=== PATIENT | male | born 1995 | race Caucasian/White ===

== ENCOUNTER 2023-10-21 11:04 | Emergency (ER) | payer MEDICAID ==
[~2023-10-21] VITALS: Ht 180.3 cm; Wt 68.1 kg
[2023-10-21 11:04] VITALS: BP 112/77; RESP 16; O2SAT 100
[2023-10-21 11:13] VITALS: PULSE 117
[2023-10-21] MEDS ORDERED: SODIUM CHLORIDE 0.9% 500 ML IV ONE (11:15)
== END 2023-10-21 12:32 | disposition left against medical advice (07) ==
LOC: EDUNIT# 11:04 → ER 11:04 → EDBD 11:04 → ER 12:32
DX: R07.2 Precordial pain (principal); R06.02 Shortness of breath; R25.2 Cramp and spasm
CPT/HCPCS: 93005